=== PATIENT | female | born 1955 | race Caucasian/White ===

== ENCOUNTER → 2017-09-29 | Outpatient (CLI) | payer SELFPAY ==
[~2017-09-29] MED LIST: ACE500 PO; ALB17R INH; ALBU8.5H12 IH; ARMOUR THYROID PO; AZIT-9 PO; Armour Thyroid PO; CALC-494 PO; CEF300 PO; CEP500 PO; CEPH-13 PO; CEPH500T7 PO; CIP500 PO; CLI150 PO; CLIN300C99 PO; COM14R IH; DAR100 PO; DEXT15CA PO; DEXT15CA22 PO; DOX100 PO; DOXY150C4 PO; DUL100/5PT INH; ERG400 PO; EST3 PO; FLUC200T52 PO; FLUT1DIS28 IH; HYDR-3250 PO; HYDR-3503 PO; HYDR473S4 PO; IBU600 PO; KET10 PO; LEV100 PO; LEV500 PO; LEVO-3 PO; LOR1 PO; LOR5 PO; LOR5/325 PO; MAINTENANCE INHALER; MECL-81 PO; MECL25TA9 PO; METR-1 PO; MON10 PO; NOR5/325 PO; OMEP40CA45 PO; ONDA4TAB PO; ONDA4TAB9 PO; ONDA4TAB97 PO; ONDA8TAB94 PO; PAN40 PO; PER PO; PHEN120S16 PO; PHEN200T32 PO; PHENA200 PO; PRE10 PO; PRE20; PRE20 PO; PROM-110 PO; SCOT TD; THYR120T10 PO; TRAM-420 PO; TRAM-627 PO; [UNRECOGNIZED DRUG - CODE] TOP; [UNRECOGNIZED DRUG - OTHER]; prednisone
--- NOTE | 2017-09-29 17:16 | RADIOLOGY IMAGING REPORT ---
FACILITY: [facility] - [place], [place] PATIENT NAME: Hannah Johnson : 1955 MR: [id number] V: [id number] EXAM DATE: ORDERING PHYSICIAN: TIERNEY OROZCO TECHNOLOGIST: Location: [facility] Patient: Hannah Johnson : 1955 Visit/Account:[id number] Date of Sevice: 09/29/2017 Exam type: 3 views left shoulder History: Pain Comparison: 01/26/2012. Findings: There is no acute fracture dislocation of left shoulder. AC joint aligns appropriate. There are signi ficant osteoarthritis of the left glenohumeral joint with large osteophyte along the inferomedial hum eral head. Left lung apex is unremarkable. Healed posterior left 9th rib fractures noted. IMPRESSION: 1. No acute fracture dislocation left shoulder. 2. Degenerative changes of left glenohumeral joint with a large osteophyte involving the left humeral head. Report Dictated By: Brendon Mares MD at 09/29/2017 5:07 PM Report E-Signed By: Brendon Mares MD at 09/29/2017 5:13 PM WSN:[id number]
== END ==
LOC: RAD 16:35
PROVIDERS: ATTEND Family Medicine
DX: M19.012 Primary osteoarthritis, left shoulder (principal)

== ENCOUNTER 2017-11-02 13:52 | Emergency (ER) | payer SELFPAY ==
[~2017-11-02 13:52] MED LIST changes: -AMPH15CA; -ERGO500037; -PRED20TA6 PO
[2017-11-02] MEDS ORDERED: AMPH15CA (14:01)
[2017-11-02] MEDS ORDERED: ERGO500037 (14:01)
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
[2017-11-02] MEDS ORDERED: ALBUTEROL/IPRATROPIUM 3 ML NEB NEB ONE (14:05)
[2017-11-02] MEDS ORDERED: methylPREDNIS SUCC 125 MG/2ML IVP ONE (14:05)
--- NOTE | 2017-11-02 14:30 | EKG ---
FACILITY: [facility] - [place] PATIENT NAME: CHRISTOPH MIDDLETON : [id number] MR: [id number] V: [id number] EXAM DATE: ORDERING PHYSICIAN: HUMPHREY MCKNIGHT TECHNOLOGIST: OUMOU Test Reason : CP Blood Pressure : / mmHG Vent. Rate : 073 BPM Atrial Rate : 073 BPM P-R Int : 126 ms QRS Dur : 090 ms QT Int : 408 ms P-R-T Axes : 069 038 061 degrees QTc Int : 449 ms Normal sinus rhythm Normal ECG When compared with ECG of 05-NOV-2012 23:18, No significant change was found Confirmed by VIVIAN AVILES ([id number]) on 11/04/2017 2:15:53 PM Referred By: HUMPHREY Confirmed By:VIVIAN AVILES
[2017-11-02 14:35] LABS: PLATELET COUNT, AUTOMATED 187 K/uL (150-450)
[2017-11-02] MEDS ORDERED: NS(*) 0.9% 500 ML BAG 500 ML IV ONE (14:40)
[2017-11-02] MEDS ORDERED: ALBUTEROL SULFATE 90 MCG/ACT 8.5 GM HNH INH PRN (15:05)
--- NOTE | 2017-11-02 17:18 | EKG ---
[place] [facility] [place] CHRISTOPH MIDDLETON : [id number] MR: [id number] V: [id number] EXAM DATE: ORDERING PHYSICIAN: HUMPHREY MCKNIGHT TECHNOLOGIST: FREDDIE Villegas Reason : REPEAT EKG \ SOB Blood Pressure : / mmHG Vent. Rate : 066 BPM Atrial Rate : 066 BPM P-R Int : 136 ms QRS Dur : 094 ms QT Int : 432 ms P-R-T Axes : 084 052 073 degrees QTc Int : 452 ms Normal sinus rhythm Normal ECG When compared with ECG of 02-NOV-2017 14:15, No significant change was found Confirmed by VIVIAN AVILES ([id number]) on 11/04/2017 2:16:02 PM Referred By: CLIFF Confirmed By:VIVIAN AVILES
[2017-11-02 18:00] VITALS: BP 127/94
[2017-11-02] MEDS ORDERED: PRED20TA6 PO (18:02)
== END 2017-11-02 18:17 | disposition home or self-care (01) ==
LOC: ER 14:02
DX: J45.21 Mild intermittent asthma with (acute) exacerbation (principal)
CPT/HCPCS: 83880; 84484; 85025; 93005; 96361; 96374; 99284; J2930; J7040; J7620; 82040; 82247; 82310; 82374; 82435; 82565; 82947; 84075; 84132; 84155; 84295; 84450; 84460; 84520

== ENCOUNTER → 2017-11-02 | Outpatient (CLI) | payer SELFPAY ==
[~2017-11-02] MED LIST changes: +AMPH15CA; +ERGO500037; +PRED20TA6 PO
--- NOTE | 2017-11-02 12:59 | RADIOLOGY IMAGING REPORT ---
FACILITY: [facility] PATIENT NAME: Hannah Johnson : 1955 MR: [id number] V: [id number] EXAM DATE: ORDERING PHYSICIAN: TIERNEY OROZCO TECHNOLOGIST: [place] [facility] [place]: Hannah Johnson : 1955 Visit/Account:[id number] Date of Sevice: 11/02/2017 Technique: CHEST PA AND LAT HISTORY: Bronchitis Comparison studies: Chest radiograph December 16, 2012 FINDINGS: The lungs are clear. No pleural effusion or airspace consolidation. The cardiomediastinal silhouette is unchanged. IMPRESSION: 1. No acute cardiopulmonary process. Report Dictated By: Aric Baldwin DO at 11/02/2017 12:54 PM Report E-Signed By: Aric Baldwin DO at 11/02/2017 12:56 PM WSN:[id number]
== END ==
LOC: RAD 12:30
PROVIDERS: ATTEND Family Medicine
DX: J40 Bronchitis, not specified as acute or chronic (principal)
CPT/HCPCS: 71046

== ENCOUNTER 2017-11-06 15:56 | Emergency (ER) | payer OTHER ==
[~2017-11-06 15:56] MED LIST changes: +AMPH15CA; +ERGO500037; +PRED20TA6 PO
[2017-11-06] MEDS ORDERED: DIPHTH/TETANUS/ACEL. PERTUSSIS IM ONLY ONE (16:40)
[2017-11-06 18:15] VITALS: BP 153/79
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
== END 2017-11-06 18:45 | disposition home or self-care (01) ==
LOC: ER 16:02
DX: S61.215A Laceration without foreign body of left ring finger without damage to nail, initial encounter (principal); W26.0XXA Contact with knife, initial encounter
CPT/HCPCS: 90471; 90715; 99283

== ENCOUNTER 2017-11-06 21:43 | Emergency (ER) | payer OTHER ==
[2017-11-06 22:06] VITALS: BP 151/88
--- NOTE | 2017-11-07 00:29 | ER Report ---
History and Physical Time Seen By MD: 00:29 Hx. of Stated Complaint: PATIENT WAS SEEN EARLIER TODAY FOR A LACERATION TO FINGER, PATIENT IS RETURNING BECUASE SHE STATES THE PAIN IS JUST TO MUCH AND THE TYELNOL IS NOT TOUCHING HER PAIN. HPI/ROS CHIEF COMPLAINT: Finger laceration earlier tonight which was repaired, now with finger pain HISTORY OF PRESENT ILLNESS: This is a 62-year-old female. She is having severe pain uncontrolled with ibuprofen. Was here for repair earlier tonight, please see that documentation. Fingers in a splint. Normal sensation. Allergies: Coded Allergies: Penicillins (Verified Allergy, Mild, 11/02/17) Sulfa (Sulfonamide Antibiotics) (Verified Allergy, Mild, 11/02/17) methylphenidate (Verified Allergy, Mild, 11/02/17) codeine (Verified Allergy, Unknown, 11/02/17) Home Meds Active Scripts Prednisone (PREDNISONE) 20 Mg Tablet, 20 MG PO BID for 5 Days, #10 TAB 0 Refills Prov:HUMPHREY MCKNIGHT [facility]-BC 11/02/17 Reported Medications Ergocalciferol (Vitamin D2) (VITAMIN D2) 50,000 Unit Capsule, QWEEK 11/02/17 Amphet Asp/Amphet/D-Amphet (DEXTROAMP-AMPHET ER 15 MG CAP) 15 Mg Cap.er.24h, BID 11/02/17 Levothyroxine Sodium (LEVOTHYROXINE SODIUM) 100 Mcg Tablet, 100 MCG PO QDAY, TAB 04/06/17 Mometasone/Formoterol (DULERA 100 MCG/5 MCG INHALER) 13 Gm Inh, 13 GM INH BID Y for SHORTNESS OF BREATH, INH 01/19/15 Albuterol Sul Hfa 90 Mcg 8 Gm (VENTOLIN HFA 90 MCG 8 GM) 8.5 Gm Hfa.aer.ad, 1-2 PUFF IH 3-4XD, INHALER 01/19/15 Discontinued Reported Medications Meclizine Hcl (MECLIZINE HCL) 25 Mg Tablet, 25 MG PO BID 08/05/16 Discontinued Scripts Ondansetron Hcl (ZOFRAN) 4 Mg Tablet, 4 MG PO Q6H Y for NAUSEA/VOMITING, #10 Prov:ELISEO SUAREZ DO 04/06/17 Reviewed Nurses Notes: Yes Hx Smoking: No Smoking Status: Never Smoker Exposure to Second Hand Smoke?: Yes Hx Substance Use Disorder: No Hx Alcohol Use: Yes (OCC) Physical Exam General: Alert, no acute distress Skin: Not fully evaluated. Good cap refill at the end of the finger. Dressing intact and is clean and dry. Medical Decision Making ED Course/Re-evaluation ED Course Gave one Lortab tablet now on a take home pack with 2 further tablets to use to help with pain tonight. Decision to Disposition Date: Nov 07, 2017 Decision to Disposition Time: 01:06 Depart Departure Impression: Primary Impression: Finger pain Condition: Improved Disposition: HOME OR SELF-CARE Referrals: TIERNEY OROZCO DO (PCP) Patient Instructions: Musculoskeletal Pain (ED) Additional Instructions: Use the Lortab 5/325 tablets provided in the take home pack, take one every 6 hours as needed for pain. Keep using Ibuprofen for pain. Problem Qualifiers Primary Impression: Finger pain Laterality: left Qualified Codes: M79.645 - Pain in left finger(s) TOÑO HOOPER MD Nov 07, 2017 00:29
[2017-11-07] MEDS ORDERED: APAP/HYDROCODONE 325/5 TAB PO ONE (01:10)
[2017-11-07] MEDS ORDERED: ACET/HYDROC 5/325MG TH ER ONLY 2 TAB/BOTTLE PO ONE (01:10)
== END 2017-11-07 01:21 | disposition home or self-care (01) ==
LOC: ER 22:01
DX: M79.645 Pain in left finger(s) (principal)
CPT/HCPCS: 99283

== ENCOUNTER 2018-06-18 15:48 | Emergency (ER) | payer MEDICAID, OTHER ==
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
[2018-06-18] MEDS ORDERED: NS(*) 0.9% 1000 ML BAG 1,000 ML IV ONE (15:56)
[2018-06-18] MEDS ORDERED: ACYC200O PO (15:59)
[2018-06-18] MEDS ORDERED: methylPREDNIS SUCC 125 MG/2ML IVP ONE (16:00)
[2018-06-18] MEDS ORDERED: ALBUTEROL/IPRATROPIUM 3 ML NEB NEB ONE ×2 (16:00→16:35)
[2018-06-18] MEDS ORDERED: ONDANSETRON 4 MG/2 ML VIAL IVP ONE (16:05)
[2018-06-18] MEDS ORDERED: IBUPROFEN 800 MG TAB PO ONE (16:05)
[2018-06-18 16:07] LABS: PLATELET COUNT, AUTOMATED 209 K/uL (150-450)
[2018-06-18] MEDS ORDERED: ALBUTEROL 8 GM INHALER INH ONE (16:35)
[2018-06-18 17:00] VITALS: BP 149/76
[2018-06-18] MEDS ORDERED: PRED20TA6 PO (17:05)
== END 2018-06-18 17:07 | disposition home or self-care (01) ==
LOC: ER 15:50
DX: J45.21 Mild intermittent asthma with (acute) exacerbation (principal)
CPT/HCPCS: 85025; 94640; 96361; 96374; 96375; 99284; J2405; J2930; J3535; J7030; J7620; 82040; 82247; 82310; 82374; 82435; 82565; 82947; 84075; 84132; 84155; 84295; 84450; 84460; 84520

== ENCOUNTER 2018-10-21 23:08 | Emergency (ER) | payer SELFPAY ==
[~2018-10-21 23:08] MED LIST changes: +ACYC200O PO
--- NOTE | 2018-10-21 23:10 | ER Report ---
History and Physical Time Seen By MD: 23:10 HPI/ROS CHIEF COMPLAINT: Fall HISTORY OF PRESENT ILLNESS: 63-year-old female presents ambulatory to the ER complaining of right-sided neck pain, right shoulder pain and right chest pain. Patient states she slipped and fell on black ice yesterday. She denies LOC or posterior neck pain. Patient notes no difficulty breathing. She's complaining of severe 8/10 pain in the right side of her neck extending to the mastoid region. She notes pain in her right shoulder over the before meals joint. And over the anterior ribs of the upper portion of the right chest. She states no relief with Tylenol. Patient notes no nausea/vomiting to suggest a concussion. Patient denies any hemoptysis or shortness of breath. Patient denies any other injuries to her extremities REVIEW OF SYSTEMS: Respiratory: No cough, no dyspnea. Cardiovascular: No chest pain, no palpitations. Gastrointestinal: No vomiting, no abdominal pain. Musculoskeletal: No back pain. Allergies: Coded Allergies: Penicillins (Verified Allergy, Mild, 10/21/18) Sulfa (Sulfonamide Antibiotics) (Verified Allergy, Mild, 10/21/18) methylphenidate (Verified Allergy, Mild, 10/21/18) codeine (Verified Allergy, Unknown, 10/21/18) Home Meds Active Scripts Prednisone (PREDNISONE) 20 Mg Tablet, 20 MG PO BID, #10 TAB Prov:HUMPHREY MCKNIGHT [facility]- 06/18/18 Reported Medications Acyclovir (ACYCLOVIR) 200 Mg/5 Ml Oral.susp, PO BID, #473 BOT 06/18/18 Ergocalciferol (Vitamin D2) (VITAMIN D2) 50,000 Unit Capsule, QWEEK 11/02/17 Amphet Asp/Amphet/D-Amphet (DEXTROAMP-AMPHET ER 15 MG CAP) 15 Mg Cap.er.24h, BID 11/02/17 Levothyroxine Sodium (LEVOTHYROXINE SODIUM) 100 Mcg Tablet, 100 MCG PO QDAY, TAB 04/06/17 Mometasone/Formoterol (DULERA 100 MCG/5 MCG INHALER) 13 Gm Inh, 13 GM INH BID PRN for SHORTNESS OF BREATH, INH 01/19/15 Albuterol Sul Hfa 90 Mcg 8 Gm (VENTOLIN HFA 90 MCG 8 GM) 8.5 Gm Hfa.aer.ad, 1-2 PUFF IH 3-4XD, INHALER 01/19/15 Reviewed Nurses Notes: Yes Old Medical Records Reviewed: Yes Hx Smoking: No Smoking Status: Never Smoker Exposure to Second Hand Smoke?: Yes Hx Substance Use Disorder: No Hx Alcohol Use: Yes (OCC) Constitutional Vital Sign - Last 24 Hours 10/21/18 10/21/18 10/21/18 10/21/18 23:33 23:38 23:42 23:53 Temp 98.6 Pulse 74 75 75 Resp 24 18 25 B/P (MAP) 133/66 (88) 133/66 Pulse Ox 90 91 91 O2 Delivery Room Air 10/22/18 10/22/18 10/22/18 10/22/18 00:08 01:00 01:00 01:15 Pulse 69 65 65 68 Resp 13 16 12 Pulse Ox 91 91 92 Physical Exam General Appearance: The patient is alert, has no immediate need for airway protection and no current signs of toxicity. Mild distress, palpation of the head and neck reveal no swelling or trauma. There is tenderness to the right paraspinous muscles into the right mastoid area. No bruising or abrasions. There is no tenderness on palpation of the posterior spinous processes in the cervical region, there is some tenderness on palpation of the right shoulder over the before meals joint. HEENT: Pupils equal and round no injection. TMs normal, facial bones intact on palpation, oropharynx without trauma Respiratory: Chest is non tender, lungs are clear to auscultation. Lung sounds are intact. There is tenderness in the right upper rib cage Cardiac: regular rate and rhythm Gastrointestinal: Abdomen is soft and non tender, no masses, bowel sounds normal. Musculoskeletal: Neck: Neck is supple and non tender. Tenderness to the right paraspinous muscles in the right trapezius area extending up into the right mastoid area Extremities have full range of motion and are non tender. Skin: No rashes or lesions. DIFFERENTIAL DIAGNOSIS: After history and physical exam differential diagnosis was considered for fall in the elderly including but not limited to intracranial injury, long bone and pelvic bone fracture, spinal injury, and intrathoracic injury. Medical Decision Making EKG/Imaging Imaging X-ray: Cervical spine 3 view was obtained. I viewed the images myself on the PACS system. My interpretation of the images is: No fracture no dislocation or malalignment. The radiologist interpretation had no clinically significant variation from this interpretation. X-ray: Chest x-ray, 2 views was obtained. I viewed the images myself on the PACS system. My interpretation of the images is: No pneumothorax, no fractured ribs, no hemothorax, no effusions, normal mediastinum. The radiologist interpretation had no clinically significant variation from this interpretation. X-ray: Right shoulder, 2 views was obtained. I viewed the images myself on the PACS system. My interpretation of the images is: No fracture no dislocation or malalignment. The radiologist interpretation had no clinically significant variation from this interpretation. ED Course/Re-evaluation ED Course Patient was admitted to an examination room. H&P was done. The differential diagnoses was considered. On clinical examination. Patient has pain from a fall 24 hours ago. On conical examination. There is no gross deformity, soft tissue swelling or ecchymosis. Diagnostic x-rays are performed. They are unremarkable. Results are discussed with the patient. She is advised to conservative treatment plan of ibuprofen for pain. She'll be discharged home with a Lortab take home pack of medication for temporary pain relief. No prescription for Lortab was provided. She is advised to follow-up with primary care for referral for PT if unimproved in 3-5 days. Decision to Disposition Date: Oct 21, 2018 Decision to Disposition Time: 23:51 Depart Departure Latest Vital Signs Vital Signs Date Time Temp Pulse Resp B/P (MAP) Pulse Ox O2 Delivery O2 Flow Rate FiO2 10/22/18 01:15 68 12 92 10/21/18 23:42 98.6 133/66 Room Air Impression: Primary Impression: Fall from ground level Additional Impressions: Contusion of neck Contusion of right shoulder Contusion of right chest wall Condition: Improved Disposition: HOME OR SELF-CARE Referrals: TIERNEY OROZCO DO (PCP) Patient Instructions: Contusion in Adults (ED) Additional Instructions: Take ibuprofen 200 mg 3 tablets 3 times a day with food Apply ice packs to the affected area for the 1st 2 days then switch to heat or hot compresses Follow-up with your primary care doctor if unimproved in 5-7 days Problem Qualifiers Additional Impressions: Contusion of neck Encounter type: initial encounter Qualified Codes: S10.93XA - Contusion of unspecified part of neck, initial encounter Contusion of right shoulder Encounter type: initial encounter Qualified Codes: S40.011A - Contusion of right shoulder, initial encounter Contusion of right chest wall Encounter type: initial encounter Qualified Codes: S20.211A - Contusion of right front wall of thorax, initial encounter ELISEO SUAREZ DO Oct 21, 2018 23:10
[2018-10-21 23:42] VITALS: BP 133/66
[2018-10-22] MEDS ORDERED: ACET/HYDROC 5/325MG TH ER ONLY 2 TAB/BOTTLE PO ONE (01:00)
--- NOTE | 2018-10-22 01:04 | RADIOLOGY IMAGING REPORT ---
FACILITY: [facility] PATIENT NAME: Hannah Johnson : 1955 MR: [id number] V: [id number] EXAM DATE: ORDERING PHYSICIAN: ELISEO SUAREZ TECHNOLOGIST: Location: [facility] Patient: Hannah Johnson : 1955 Visit/Account:[id number] Date of Sevice: 10/21/2018 CERVICAL SPINE 2 OR 3 VIEW INDICATION: Neck pain. COMPARISON: None available. FINDINGS: 3 views of the cervical spine including AP, lateral, and odontoid. Reversal of the normal lordosis. Otherwise normal alignment. Multilevel degenerative disc disease and facet hypertrophy. No prevertebral soft tissue swelling. IMPRESSION: Multilevel degenerative disc disease and facet hypertrophy with reversal of the normal lo rdosis. Otherwise negative cervical spine radiographs. Report Dictated By: Blair Sen MD at 10/22/2018 12:58 AM Report E-Signed By: Blair Sen MD at 10/22/2018 12:59 AM WSN:[id number]
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
--- NOTE | 2018-10-22 01:06 | RADIOLOGY IMAGING REPORT ---
FACILITY: [facility] [place] PATIENT NAME: Hannah Johnson : 1955 MR: [id number] V: [id number] EXAM DATE: ORDERING PHYSICIAN: ELISEO SUAREZ TECHNOLOGIST: Location: [facility] Patient: Hannah Johnson : 1955 Visit/Account:[id number] Date of Sevice: 10/21/2018 CHEST: Indication: Injury. Technique: Frontal and lateral views were obtained. Comparison: 11/02/2017 Skeletal and soft tissue structures: There is a pre-existing deformity of the left ninth rib. There a re chronic degenerative changes in both shoulders. No acute skeletal deformity is clearly identified. Heart and mediastinum: Within normal limits. Lung ferguson: Well-expanded and clear. Pleural spaces: Unremarkable. Impression: No acute process or significant change. Report Dictated By: Brodie Ames MD at 10/22/2018 12:59 AM Report E-Signed By: Brodie Ames MD at 10/22/2018 1:02 AM WSN:[id number]
== END 2018-10-22 01:33 | disposition home or self-care (01) ==
LOC: ER 23:17
DX: S10.93XA Contusion of unspecified part of neck, initial encounter (principal); S40.011A Contusion of right shoulder, initial encounter; S20.211A Contusion of right front wall of thorax, initial encounter; W00.0XXA Fall on same level due to ice and snow, initial encounter
CPT/HCPCS: 71046; 72040; 99284

== ENCOUNTER 2018-12-18 16:50 | Emergency (ER) | payer SELFPAY ==
--- NOTE | 2018-12-18 17:51 | ER Report ---
History and Physical Time Seen By MD: 17:51 Hx. of Stated Complaint: MIGRAINE, VOMITING, EYE IRRITATION HPI/ROS CHIEF COMPLAINT: Headache, eye irritation HISTORY OF PRESENT ILLNESS: 63-year-old female patient presents to emergency room with complaint of headache, eye irritation. Patient states this been going on for the past several days. Patient states it started with irritation in the right eye, and then migrated to the headache. Patient denies any fevers, chills, diarrhea. Patient states that she is not taking any medication for this. Patient states she tried to wait is logical prior to coming in. She states that the headache is significant. She denies any visual changes. Patient states she is eating and drinking well without any difficulties. REVIEW OF SYSTEMS: Respiratory: No cough, no dyspnea. Cardiovascular: No chest pain, no palpitations. Gastrointestinal: No vomiting, no abdominal pain. Musculoskeletal: No back pain. Allergies: Coded Allergies: Penicillins (Verified Allergy, Mild, 12/18/18) Sulfa (Sulfonamide Antibiotics) (Verified Allergy, Mild, 12/18/18) methylphenidate (Verified Allergy, Mild, 12/18/18) codeine (Verified Allergy, Unknown, 12/18/18) Home Meds Active Scripts Doxycycline Hyclate (DOXYCYCLINE HYCLATE) 100 Mg Tablet, 100 MG PO BID, #12 TAB Prov:MOOKIE SALAS [facility] 12/18/18 Ketorolac Tromethamine (KETOROLAC TROMETHAMINE) 10 Mg Tab, 10 MG PO Q6H, #20 TAB Prov:MOOKIE SALAS [facility] 12/18/18 Reported Medications Acyclovir (ACYCLOVIR) 200 Mg/5 Ml Oral.susp, PO BID, #473 BOT 06/18/18 Ergocalciferol (Vitamin D2) (VITAMIN D2) 50,000 Unit Capsule, QWEEK 11/02/17 Levothyroxine Sodium (LEVOTHYROXINE SODIUM) 100 Mcg Tablet, 100 MCG PO QDAY, TAB 04/06/17 Mometasone/Formoterol (DULERA 100 MCG/5 MCG INHALER) 13 Gm Inh, 13 GM INH BID PRN for SHORTNESS OF BREATH, INH 01/19/15 Albuterol Sul Hfa 90 Mcg 8 Gm (VENTOLIN HFA 90 MCG 8 GM) 8.5 Gm Hfa.aer.ad, 1-2 PUFF IH 3-4XD, INHALER 01/19/15 Discontinued Reported Medications Amphet Asp/Amphet/D-Amphet (DEXTROAMP-AMPHET ER 15 MG CAP) 15 Mg Cap.er.24h, BID 11/02/17 Discontinued Scripts Prednisone (PREDNISONE) 20 Mg Tablet, 20 MG PO BID, #10 TAB Prov:HUMPHREY MCKNIGHT [employer] 06/18/18 Past Medical/Surgical History Patient has a past medical history of concussions, wearing disability, migraines, hypertension, asthma, cholecystitis, kidney infection, kidney stones, frequent UTI, degenerative joint disease in the shoulders, arthritis, left ear infection, Mnire's disease, Mari's, alcohol use, ADD. Patient has a surgical history of tonsillectomy, later repair in right ankle, numerous cystoscopy, biopsies, urethral lesion removed, bowel obstruction repair with surgery, cholecystectomy. Reviewed Nurses Notes: Yes Hx Smoking: No Smoking Status: Never Smoker Exposure to Second Hand Smoke?: Yes Hx Substance Use Disorder: No Hx Alcohol Use: Yes (OCC) Constitutional Vital Sign - Last 24 Hours 12/18/18 12/18/18 12/18/18 12/18/18 17:39 17:50 18:00 18:05 Temp 98.7 Pulse 78 66 67 Resp 20 B/P (MAP) 151/100 117/64 (81) Pulse Ox 93 93 92 O2 Delivery Room Air 12/18/18 12/18/18 12/18/18 12/18/18 18:20 18:30 18:35 18:40 Pulse 65 64 65 B/P (MAP) 136/67 (90) Pulse Ox 92 94 91 12/18/18 12/18/18 12/18/18 12/18/18 19:00 19:10 19:25 19:30 Pulse 70 69 63 B/P (MAP) 151/107 (122) ???/??? (1665) Pulse Ox 95 93 93 12/18/18 12/18/18 12/18/18 12/18/18 19:45 20:00 20:02 20:07 Pulse 66 62 61 B/P (MAP) 137/62 (87) Pulse Ox 93 91 93 12/18/18 20:30 B/P (MAP) 142/86 (104) Physical Exam General Appearance: The patient is alert, has no immediate need for airway protection and no current signs of toxicity. Eyes: Pupils equal and round with injection. Posterior segments are normal appearing. Respiratory: Chest is non tender, lungs are clear to auscultation. Cardiac: regular rate and rhythm Gastrointestinal: Abdomen is soft and non tender, no masses, bowel sounds normal. Musculoskeletal: Neck: Neck is supple and non tender. Extremities have full range of motion and are non tender. Skin: No rashes or lesions. DIFFERENTIAL DIAGNOSIS: After history and physical exam differential diagnosis was considered for migraine, sinusitis, intra-cranial hemorrhage. Medical Decision Making Data Points Result Diagram: 12/18/18 1833 12/18/18 1833 Laboratory Hematology Test 12/18/18 18:33 Red Blood Count 4.77 M/uL (4.17-5.56) Mean Corpuscular Volume 88.2 fL (80.0-96.0) Mean Corpuscular Hemoglobin 30.3 pg (26.0-33.0) Mean Corpuscular Hemoglobin Concent 34.3 g/dL (32.0-36.0) Red Cell Distribution Width 13.9 % (11.5-14.5) Mean Platelet Volume 8.7 fL (7.2-11.1) Neutrophils (%) (Auto) 69.3 % (39.4-72.5) Lymphocytes (%) (Auto) 19.7 % (17.6-49.6) Monocytes (%) (Auto) 6.8 % (4.1-12.4) Eosinophils (%) (Auto) 3.5 % (0.4-6.7) Basophils (%) (Auto) 0.7 % (0.3-1.4) Nucleated RBC Relative Count (auto) 0.0 /100WBC Neutrophils # (Auto) 5.4 K/uL (2.0-7.4) Lymphocytes # (Auto) 1.5 K/uL (1.3-3.6) Monocytes # (Auto) 0.5 K/uL (0.3-1.0) Eosinophils # (Auto) 0.3 K/uL (0.0-0.5) Basophils # (Auto) 0.1 K/uL (0.0-0.1) Nucleated RBC Absolute Count (auto) 0.00 K/uL Erythrocyte Sedimentation Rate 37 mm/HOUR (0-30) Sodium Level 139 mmol/L (137-145) Potassium Level 4.3 mmol/L (3.5-5.0) Chloride Level 105 mmol/L (98-107) Carbon Dioxide Level 26 mmol/L (22-31) Blood Urea Nitrogen 16 mg/dl (7-18) Creatinine 0.70 mg/dl (0.52-1.04) Glomerular Filtration Rate Calc > 60.0 Random Glucose 92 mg/dl (75-110) Calcium Level 9.1 mg/dl (8.4-10.2) Total Bilirubin 0.2 mg/dl (0.2-1.3) Aspartate Amino Transf (AST/SGOT) 16 U/L (0-35) Alanine Aminotransferase (ALT/SGPT) 22 U/L (0-56) Alkaline Phosphatase 76 U/L (0-126) C-Reactive Protein 2.7 mg/dl (<1.0) Total Protein 7.2 g/dl (6.3-8.2) Albumin 3.7 g/dl (3.5-5.0) Chemistry Test 12/18/18 18:33 White Blood Count 7.8 k/uL (4.5-11.0) Red Blood Count 4.77 M/uL (4.17-5.56) Hemoglobin 14.5 g/dL (12.0-16.0) Hematocrit 42.1 % (34.0-47.0) Mean Corpuscular Volume 88.2 fL (80.0-96.0) Mean Corpuscular Hemoglobin 30.3 pg (26.0-33.0) Mean Corpuscular Hemoglobin Concent 34.3 g/dL (32.0-36.0) Red Cell Distribution Width 13.9 % (11.5-14.5) Platelet Count 185 K/uL (150-450) Mean Platelet Volume 8.7 fL (7.2-11.1) Neutrophils (%) (Auto) 69.3 % (39.4-72.5) Lymphocytes (%) (Auto) 19.7 % (17.6-49.6) Monocytes (%) (Auto) 6.8 % (4.1-12.4) Eosinophils (%) (Auto) 3.5 % (0.4-6.7) Basophils (%) (Auto) 0.7 % (0.3-1.4) Nucleated RBC Relative Count (auto) 0.0 /100WBC Neutrophils # (Auto) 5.4 K/uL (2.0-7.4) Lymphocytes # (Auto) 1.5 K/uL (1.3-3.6) Monocytes # (Auto) 0.5 K/uL (0.3-1.0) Eosinophils # (Auto) 0.3 K/uL (0.0-0.5) Basophils # (Auto) 0.1 K/uL (0.0-0.1) Nucleated RBC Absolute Count (auto) 0.00 K/uL Erythrocyte Sedimentation Rate 37 mm/HOUR (0-30) Glomerular Filtration Rate Calc > 60.0 Calcium Level 9.1 mg/dl (8.4-10.2) Total Bilirubin 0.2 mg/dl (0.2-1.3) Aspartate Amino Transf (AST/SGOT) 16 U/L (0-35) Alanine Aminotransferase (ALT/SGPT) 22 U/L (0-56) Alkaline Phosphatase 76 U/L (0-126) C-Reactive Protein 2.7 mg/dl (<1.0) Total Protein 7.2 g/dl (6.3-8.2) Albumin 3.7 g/dl (3.5-5.0) EKG/Imaging Imaging CT OF THE BRAIN WITHOUT CONTRAST HISTORY: Headache PROCEDURE: 3.0 mm contiguous axial sections were performed through the brain. Sagittal and coronal reformats were submitted. COMPARISON: None FINDINGS: BRAIN: Brain and intracranial structures: There is no mass lesion, hemorrhage or acute infarct. Orbits (included portions): Normal. Scalp: Normal. Skull: Normal. Paranasal sinuses and mastoid air cells (included portions): Mild ethmoid and maxillary mucosal thickening. IMPRESSION: No evidence of acute intracranial abnormality. One of the following dose optimization techniques was utilized in the performance of this exam: Automated exposure control; adjustment of the mA and/or kV according to the patient's size; or use of an iterative reconstruction technique. Specific details can be referenced in the facility's radiology CT exam operational policy. Report Dictated By: Porsche Olivo MD at 12/18/2018 7:29 PM Report E-Signed By: Porsche Olivo MD at 12/18/2018 7:37 PM ED Course/Re-evaluation ED Course [facility], history and physical were obtained. Differential diagnoses were considered. On examination lungs are clear, heart is regular, abdomen soft nontender. Patient had some injection around the eyes, posterior segments were unremarkable. An IV was started, CBC, CMP, CRP, ESR were obtained. I results were unremarkable except patient did have a slightly elevated CRP and ESR, 3.[address] scan of the head was done which showed mild thickening of the maxillary and ethmoid sinuses. I believe that the headache in the symptoms are related to sinusitis. We will go ahead and treat her with doxycycline, she does have an allergy to penicillin. We'll have patient follow-up with [facility] in the next week. She is return to emergency room if condition worsens. Patient did receive a dose of Toradol here in the emergency room via her IV which seem to help with her pain. We will go ahead and send her home with a prescription as well. Patient verbalized understanding and agreement with plan. Decision to Disposition Date: December 18, 2018 Decision to Disposition Time: 20:00 Depart Departure Latest Vital Signs Vital Signs Date Time Temp Pulse Resp B/P (MAP) Pulse Ox O2 Delivery O2 Flow Rate FiO2 12/18/18 20:30 142/86 (104) 12/18/18 20:07 61 93 12/18/18 17:39 98.7 20 Room Air Impression: Primary Impression: Sinusitis Condition: Improved Disposition: HOME OR SELF-CARE Referrals: TIERNEY OROZCO DO (PCP) New Scripts Doxycycline Hyclate (DOXYCYCLINE HYCLATE) 100 Mg Tablet 100 MG PO BID, #12 TAB Prov: MOOKIE SALAS 12/18/18 Ketorolac Tromethamine (KETOROLAC TROMETHAMINE) 10 Mg Tab 10 MG PO Q6H, #20 TAB Prov: MOOKIE SALAS 12/18/18 Patient Instructions: Sinusitis (ED) Additional Instructions: Increase fluid intake. Get plenty of rest. Follow up with your primary care provider in the next week, I would recommend [facility] as you are without insurance currently. Take the medication as prescribed. Return to the ER if condition worsens. Problem Qualifiers Primary Impression: Sinusitis Sinusitis location: pansinusitis Chronicity: acute Recurrence: non- recurrent Qualified Codes: J01.40 - Acute pansinusitis, unspecified MOOKIE SALAS December 18, 2018 17:51
[2018-12-18] MEDS ORDERED: NS(*) 0.9% 1000 ML BAG 1,000 ML IV ONE (18:05)
[2018-12-18] MEDS ORDERED: ONDANSETRON 4 MG/2 ML VIAL IVP ONE (18:05)
[2018-12-18 18:41] LABS: PLATELET COUNT, AUTOMATED 185 K/uL (150-450)
--- NOTE | 2018-12-18 19:41 | RADIOLOGY IMAGING REPORT ---
FACILITY: [facility] PATIENT NAME: Hannah Johnson : 1955 MR: [id number] V: [id number] EXAM DATE: ORDERING PHYSICIAN: MOOKIE SALAS TECHNOLOGIST: Location: [facility] [place] Patient: Hannah Johnson : 1955 Visit/Account:[id number] Date of Sevice: 12/18/2018 CT OF THE BRAIN WITHOUT CONTRAST HISTORY: Headache PROCEDURE: 3.0 mm contiguous axial sections were performed through the brain. Sagittal and coronal r eformats were submitted. COMPARISON: None FINDINGS: BRAIN: Brain and intracranial structures: There is no mass lesion, hemorrhage or acute infarct. Orbits (included portions): Normal. Scalp: Normal. Skull: Normal. Paranasal sinuses and mastoid air cells (included portions): Mild ethmoid and maxillary mucosal thick ening. IMPRESSION: No evidence of acute intracranial abnormality. One of the following dose optimization techniques was utilized in the performance of this exam: Autom ated exposure control; adjustment of the mA and/or kV according to the patient's size; or use of an i terative reconstruction technique. Specific details can be referenced in the facility's radiology C T exam operational policy. Report Dictated By: Porsche Olivo MD at 12/18/2018 7:29 PM Report E-Signed By: Porsche Olivo MD at 12/18/2018 7:37 PM [id number]
[2018-12-18] MEDS ORDERED: DOXYCYCLINE HYCL 100 MG TAB PO ONE ×2 (19:45→20:30)
[2018-12-18] MEDS ORDERED: KETOROLAC 15 MG/ML VIAL IVP ONE (19:45)
[2018-12-18] MEDS ORDERED: KET10 PO (19:59)
[2018-12-18] MEDS ORDERED: DOXY-179 PO (19:59)
[2018-12-18 20:30] VITALS: BP 142/86
== END 2018-12-18 20:42 | disposition home or self-care (01) ==
LOC: ER 17:45
DX: J01.40 Acute pansinusitis, unspecified (principal)
CPT/HCPCS: 70450; 85025; 85651; 86140; 96361; 96374; 96375; 99284; J1885; J2405; J7030; 82040; 82247; 82310; 82374; 82435; 82565; 82947; 84075; 84132; 84155; 84295; 84450; 84460; 84520

== ENCOUNTER 2019-02-26 02:15 | Emergency (ER) | payer SELFPAY ==
[~2019-02-26 02:15] MED LIST changes: +DOXY-179 PO
[2019-02-26] MEDS ORDERED: ADDEXR15PT PO (02:33)
--- NOTE | 2019-02-26 02:34 | ER Report ---
History and Physical Time Seen By MD: 02:28 Hx. of Stated Complaint: LEFT FLANK PAIN THAT STARTED TODAY; VAGINAL PAIN AND ITCHING STATES THAT HE HAS A "RASH" HPI/ROS CHIEF COMPLAINT: lower abdominal pain, dysuria and flank pain, flare up of her lichen planus rash in groin area. HISTORY OF PRESENT ILLNESS: This is a 63 year old female. She has been having abdominal pain over the last 24 hours, associated with nausea and vomiting, Having some diarrhea as well. Rash flare up in groin, pain and itching. Having dysuria, no frequency, with flank pain now. Fevers at times as well. Allergies: Coded Allergies: Penicillins (Verified Allergy, Mild, 12/18/18) Sulfa (Sulfonamide Antibiotics) (Verified Allergy, Mild, 12/18/18) methylphenidate (Verified Allergy, Mild, 12/18/18) codeine (Verified Allergy, Unknown, 12/18/18) Home Meds Active Scripts Prednisone (PREDNISONE) 20 Mg Tablet, 60 MG PO QDAY for 4 Days, #12 TAB 0 Refills Prov:TOÑO HOOPER MD 02/26/19 Phenazopyridine Hcl (PHENAZOPYRIDINE HCL) 200 Mg Tablet, 200 MG PO TID PRN for PAIN, #12 TAB 0 Refills Prov:TOÑO HOOPER MD 02/26/19 Cefdinir 300 Mg Cap (OMNICEF 300 MG CAP (OR EQUIV)) 300 Mg Cap, 300 MG PO BID, #20 CAP 0 Refills Prov:TOÑO HOOPER MD 02/26/19 Reported Medications Amphet Asp/Amphet/D-Amphet (ADDERALL XR 15 MG CAPSULE) 15 Mg Cap.er.24h, 15 MG PO 02/26/19 Acyclovir (ACYCLOVIR) 200 Mg/5 Ml Oral.susp, PO BID, #473 BOT 06/18/18 Ergocalciferol (Vitamin D2) (VITAMIN D2) 50,000 Unit Capsule, QWEEK 11/02/17 Levothyroxine Sodium (LEVOTHYROXINE SODIUM) 100 Mcg Tablet, 100 MCG PO QDAY, TAB 04/06/17 Mometasone/Formoterol (DULERA 100 MCG/5 MCG INHALER) 13 Gm Inh, 13 GM INH BID PRN for SHORTNESS OF BREATH, INH 01/19/15 Albuterol Sul Hfa 90 Mcg 8 Gm (VENTOLIN HFA 90 MCG 8 GM) 8.5 Gm Hfa.aer.ad, 1-2 PUFF IH 3-4XD, INHALER 01/19/15 Discontinued Scripts Doxycycline Hyclate (DOXYCYCLINE HYCLATE) 100 Mg Tablet, 100 MG PO BID, #12 TAB Prov:MOOKIE SALAS [employer] 12/18/18 Ketorolac Tromethamine (KETOROLAC TROMETHAMINE) 10 Mg Tab, 10 MG PO Q6H, #20 TAB Prov:MOOKIE SALAS [facility] 12/18/18 Hx Smoking: No Smoking Status: Never Smoker Exposure to Second Hand Smoke?: Yes Hx Substance Use Disorder: No Hx Alcohol Use: Yes (OCC) Constitutional Vital Sign - Last 24 Hours 02/26/19 02/26/19 02/26/19 02/26/19 02:15 02:23 02:27 02:30 Temp 97.6 Pulse ??? 78 Resp 18 B/P (MAP) 133/84 (100) 133/84 116/78 (91) Pulse Ox 95 O2 Delivery Room Air 02/26/19 02/26/19 02/26/19 02/26/19 02:45 03:00 03:15 03:20 Pulse 69 72 68 B/P (MAP) 123/79 (94) Pulse Ox 94 95 93 02/26/19 02/26/19 02/26/19 03:50 04:20 04:25 Pulse 64 64 67 Pulse Ox 93 93 94 Physical Exam General Appearance: The patient is alert. No acute distress. Eyes: Pupils are equal, round. No pallor, injection or icterus. ENT: Mucous membranes are moist. Normal oral mucosa. Posterior oropharynx is normal. Neck: Supple and non tender. Respiratory: Lungs are clear to auscultation. Cardiovascular: Regular rate and rhythm. No murmurs, gallops or rubs. Normal capillary refill. No edema. Gastrointestinal: Abdomen is soft, but very tender in suprapubic area. Nondistended. Guarding, but no rebound. Normal active bowel sounds. Has bilateral CVA tenderness. Neurological: Alert and oriented x3. No focal neurologic deficits Skin: Warm and dry. Has flare up of lichen planus rash in groin. Musculoskeletal: Extremities are nontender. DIFFERENTIAL DIAGNOSIS: After history and physical exam, differential diagnosis was considered for lower abdominal and flank pain including but not limited to musculoskeletal causes, kidney stone, pyelonephritis, shingles, and intra- abdominal causes such as diverticulitis and appendicitis. Medical Decision Making Data Points Result Diagram: 02/26/19 0242 02/26/19 0242 Laboratory Hematology Test 02/26/19 02:42 White Blood Count 4.9 k/uL (4.5-11.0) Red Blood Count 4.37 M/uL (4.17-5.56) Hemoglobin 13.3 g/dL (12.0-16.0) Hematocrit 38.9 % (34.0-47.0) Mean Corpuscular Volume 89.0 fL (80.0-96.0) Mean Corpuscular Hemoglobin 30.4 pg (26.0-33.0) Mean Corpuscular Hemoglobin Concent 34.1 g/dL (32.0-36.0) Red Cell Distribution Width 14.7 % (11.5-14.5) H Platelet Count 170 K/uL (150-450) Mean Platelet Volume 8.8 fL (7.2-11.1) Neutrophils (%) (Auto) 43.5 % (39.4-72.5) Lymphocytes (%) (Auto) 40.2 % (17.6-49.6) Monocytes (%) (Auto) 7.6 % (4.1-12.4) Eosinophils (%) (Auto) 6.4 % (0.4-6.7) Basophils (%) (Auto) 2.3 % (0.3-1.4) H Nucleated RBC Relative Count (auto) 0.0 /100WBC Neutrophils # (Auto) 2.1 K/uL (2.0-7.4) Lymphocytes # (Auto) 2.0 K/uL (1.3-3.6) Monocytes # (Auto) 0.4 K/uL (0.3-1.0) Eosinophils # (Auto) 0.3 K/uL (0.0-0.5) Basophils # (Auto) 0.1 K/uL (0.0-0.1) Nucleated RBC Absolute Count (auto) 0.00 K/uL Chemistry Test 02/26/19 02:42 Sodium Level 140 mmol/L (137-145) Potassium Level 3.8 mmol/L (3.5-5.0) Chloride Level 109 mmol/L (98-107) Carbon Dioxide Level 24 mmol/L (22-31) Blood Urea Nitrogen 21 mg/dl (7-18) Creatinine 0.80 mg/dl (0.52-1.04) Glomerular Filtration Rate Calc > 60.0 Random Glucose 111 mg/dl (75-110) Calcium Level 9.0 mg/dl (8.4-10.2) Total Bilirubin 0.2 mg/dl (0.2-1.3) Aspartate Amino Transf (AST/SGOT) 21 U/L (0-35) Alanine Aminotransferase (ALT/SGPT) 26 U/L (0-56) Alkaline Phosphatase 52 U/L (0-126) C-Reactive Protein < 0.5 mg/dl (<1.0) Total Protein 6.4 g/dl (6.3-8.2) Albumin 3.4 g/dl (3.5-5.0) Urinalysis Test 02/26/19 04:38 Urine Color Yellow Urine Clarity Slightly-cloudy Urine pH 5.0 pH (4.8-9.5) Urine Specific [place] 1.024 Urine Protein Negative mg/dL (NEGATIVE) Urine Glucose (UA) Negative mg/dL (NEGATIVE) Urine Ketones Negative mg/dL (NEGATIVE) Urine Blood Large (NEGATIVE) Urine Nitrite Negative (NEGATIVE) Urine Bilirubin Negative (NEGATIVE) Urine Urobilinogen Negative mg/dL (0.2-1.9) Urine Leukocyte Esterase Small (NEGATIVE) Urine RBC 425 /HPF (0-2/HPF) Urine WBC 9 /HPF (0-5/HPF) Urine WBC Clumps Few /HPF Urine Squamous Epithelial Cells Many /LPF (</=FEW) Urine Amorphous Crystals Few /HPF Urine Bacteria Few /HPF (NONE-FEW) Urine Granular Casts Few /LPF (NONE) Urine Mucus Few /HPF (NONE-FEW) ED Course/Re-evaluation Clinical Indication for ER IV: Hydration, IV Access ED Course Labs done, shows what appears to be a urinary tract infection. Started antibiotics and pyridium. Gave Zofran and a liter of normal saline while here. Also lidocaine for her lichen planus rash and irritation. Prednisone for this as well. Decision to Disposition Date: Feb 26, 2019 Decision to Disposition Time: 05:11 Depart Departure Latest Vital Signs Vital Signs Date Time Temp Pulse Resp B/P (MAP) Pulse Ox O2 Delivery O2 Flow Rate FiO2 02/26/19 04:25 67 94 02/26/19 03:00 123/79 (94) 02/26/19 02:27 97.6 18 Room Air Impression: Primary Impression: UTI (lower urinary tract infection) Additional Impression: Lichen planus Condition: Improved Disposition: HOME OR SELF-CARE Referrals: TIERNEY OROZCO DO (PCP) New Scripts Prednisone (PREDNISONE) 20 Mg Tablet 60 MG PO QDAY for 4 Days, #12 TAB 0 Refills Prov: TOÑO HOOPER MD 02/26/19 Phenazopyridine Hcl (PHENAZOPYRIDINE HCL) 200 Mg Tablet 200 MG PO TID PRN for PAIN, #12 TAB 0 Refills Prov: TOÑO HOOPER MD 02/26/19 Cefdinir 300 Mg Cap (OMNICEF 300 MG CAP (OR EQUIV)) 300 Mg Cap 300 MG PO BID, #20 CAP 0 Refills Prov: TOÑO HOOPER MD 02/26/19 Patient Instructions: Urinary Tract Infection in Women (ED) Additional Instructions: Take Omnicef (cefdinir) 300mg twice a day for 10 days. Take Prednisone 20mg, 3 tablets once a day for 4 days. Take Pyridium 200mg tablets every 8 hours as needed for painful urination. Use Lidocaine gel as needed three times a day for pain. Problem Qualifiers TOÑO HOOPER MD Feb 26, 2019 02:34
[2019-02-26] MEDS ORDERED: NS(*) 0.9% 1000 ML BAG 1,000 ML IV ONE ×2 (02:40→03:40)
[2019-02-26] MEDS ORDERED: ONDANSETRON 4 MG/2 ML VIAL IVP ONE (02:40)
[2019-02-26 02:54] LABS: PLATELET COUNT, AUTOMATED 170 K/uL (150-450)
[2019-02-26 03:00] VITALS: BP 123/79
[2019-02-26] MEDS ORDERED: LIDOCAINE 2% JELLY 5 ML TUBE TP ONE ×2 (03:05→05:10)
[2019-02-26] MEDS ORDERED: LIDOCAINE 2% JELLY 5 ML TUBE ONE (03:17)
[2019-02-26] MEDS ORDERED: CEFDINIR 300 MG CAP PO ONE (05:10)
[2019-02-26] MEDS ORDERED: PHENAZOPYRIDINE 200 MG TAB TH 2 TAB/BOTTLE PO ONE (05:10)
[2019-02-26] MEDS ORDERED: predniSONE 20 MG TAB PO ONE (05:10)
[2019-02-26] MEDS ORDERED: CEF300 PO (05:17)
[2019-02-26] MEDS ORDERED: PRED20TA6 PO (05:17)
[2019-02-26] MEDS ORDERED: PHEN200T32 PO (05:17)
== END 2019-02-26 05:29 | disposition home or self-care (01) ==
LOC: ER 02:23
DX: N39.0 Urinary tract infection, site not specified (principal); L43.9 Lichen planus, unspecified
CPT/HCPCS: 81001; 85025; 86140; 87088; 96361; 96374; 99283; J2405; J7030; J7512; 82040; 82247; 82310; 82374; 82435; 82565; 82947; 84075; 84132; 84155; 84295; 84450; 84460; 84520